=== PATIENT | male | born 1975 | race Caucasian/White ===

== ENCOUNTER 2017-03-26 10:40 | Outpatient (CLI) | payer BC ==
[2017-03-26] VITALS (8 sets, daily range): BP systolic 118–141; BP diastolic 68–78
[~2017-03-26 10:40] MED LIST: COUMADIN 10MG T10 MG PO; CYANOCOBAL1000 MCG/M IM; IMURAN50 MG PO; K-DUR 20MEQ TA20 MEQ PO; MEDROL 4MG. DOSE4 MG PO; NEURONTIN 100100 MG PO; PHENERGAN 25MG.25 M1 PO; PREDNISONE PO; PRILOSEC20 M1 PO; REMICADE 100MG100 MG IJ; SINGULAIR 10 MG10 MG PO; WARFARIN SOD5 MG PO; WELLBUTRIN 75MG75 MG PO; ZYRTEC-D 12HR 51 TER PO
[2017-03-26 11:24] LABS: BUN 15 mg/dL (7-18)
[2017-03-26 11:30] LABS: GFR (ESTIMATED) 73 ML/MIN (>60)
[2017-03-26 11:54] LABS: HEMOGLOBIN 14.2 g/dL (14.1-18.0); LYMPH # 1.9 K/mm3 (0.7-4.5); LYMPH % 26.5 % (10-50)
== END 2017-03-26 14:20 | disposition home or self-care (01) ==
LOC: COP 10:40
PROVIDERS: Internal Medicine Gastroenterology
DX: K50.919 Crohn's disease, unspecified, with unspecified complications (principal)
CPT/HCPCS: J1745

== ENCOUNTER 2017-08-06 08:15 | Outpatient (CLI) | payer BC ==
[2017-08-06] VITALS (7 sets, daily range): BP systolic 112–133; BP diastolic 50–86
[2017-08-06 08:51] LABS: HEMOGLOBIN 13.4 g/dL (14.1-18.0)
[2017-08-06 08:52] LABS: LYMPH # 1.2 K/mm3 (0.7-4.5)
[2017-08-06 09:02] LABS: BUN 12 mg/dL (7-18)
[2017-08-06 09:08] LABS: GFR (ESTIMATED) 73 ML/MIN (>60)
== END 2017-08-06 11:25 | disposition home or self-care (01) ==
LOC: COP 08:15
PROVIDERS: Internal Medicine Gastroenterology
DX: K50.919 Crohn's disease, unspecified, with unspecified complications (principal)
CPT/HCPCS: J1745

== ENCOUNTER 2017-08-07 13:01 | Emergency (ER) | payer BC ==
[~2017-08-07] VITALS: Ht 177.8 cm; Wt 111.1 kg
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
[2017-08-07 14:46] VITALS: BP 136/84
== END 2017-08-07 14:47 | disposition home or self-care (01) ==
LOC: ER 13:01
DX: S00.03XA Contusion of scalp, initial encounter (principal); S06.0X0A Concussion without loss of consciousness, initial encounter; Z88.1 Allergy status to other antibiotic agents; W22.8XXA Striking against or struck by other objects, initial encounter; Y92.009 Unspecified place in unspecified non-institutional (private) residence as the place of occurrence of the external cause

== ENCOUNTER → 2017-08-15 | Outpatient (CLI) | payer BC ==
--- NOTE | 2017-08-16 05:27 | RADIOLOGY REPORT PS360 ---
FOOT-LT-3 VIEWS INDICATION: Left foot pain fell in hole TECHNIQUE: 3 views left foot COMPARISON: None available FINDINGS: No definitive fracture nor dislocation apparent. Small osseous density lateral to the junction of calcaneus and cuboid noted but most likely accessory ossicle. However there should be focal pain here this may warrant further follow-up with podiatry Visualized joint space well maintained. Normal mineralization. No obvious radio opaque foreign bodies. Unremarkable soft tissues. IMPRESSION: No definitive fracture. Note comments in text
== END ==
LOC: RAD 14:50
DX: M79.672 Pain in left foot (principal)

== ENCOUNTER 2017-09-17 10:22 | Outpatient (CLI) | payer BC ==
[2017-09-17] VITALS (12 sets, daily range): BP systolic 122–146; BP diastolic 70–78
[2017-09-17 11:32] LABS: HEMOGLOBIN 13.7 g/dL (14.1-18.0); LYMPH # 1.7 K/mm3 (0.7-4.5); LYMPH % 28.1 % (10-50)
[2017-09-17 11:34] LABS: BUN 13 mg/dL (7-18)
[2017-09-17 11:37] LABS: GFR (ESTIMATED) 73 ML/MIN (>60)
== END 2017-09-17 14:30 | disposition home or self-care (01) ==
LOC: COP 10:22
PROVIDERS: Internal Medicine Gastroenterology
DX: K50.919 Crohn's disease, unspecified, with unspecified complications (principal)
CPT/HCPCS: J1745